=== PATIENT | female | born 1975 | race African-American/Black ===

== ENCOUNTER 2016-09-18 12:29 | Emergency (ER) | payer BC, OTHER ==
[~2016-09-18] VITALS: Ht 165.1 cm; Wt 73.0 kg
--- NOTE | ~2016-09-18 | EKG ---
[address] [address] ELECTROCARDIOGRAM REPORT Name: LISSETTERICHMOND D Room #: DEP [facility] Paula#: [id number] Admission: 09/18/16 Attend Phys: Discharge: 09/18/16 Date of : 75 Report #: [id number] THIS REPORT FOR: //name// [facility] ED Test Date: 2016-09-18 Test Time: 12:47:13 Pat Name: RICHMOND MCLAUGHLIN Department: Room: Gender: F Buggy Man: cecil : 1975 Requested By: Daily Rizzo Order Number: [id number] MD: Luis Alberto Menendez Measurements Intervals [place] Rate: 67 P: 49 IA: 148 QRS: -13 QRSD: 83 T: -8 QT: 399 QTc: 422 Interpretive Statements Sinus rhythm Borderline T abnormalities, inferior leads No previous ECG available for comparison Electronically Signed On 09-19-2016 8:23:24 [employer] by Luis Alberto Menendez [email or web address] <ELECTRONICALLY SIGNED> By: Luis Alberto Menendez MD 09/19/16 0823 1247 [id number] Luis Alberto Menendez MD /YESI
[~2016-09-18 12:29] MED LIST: ADVAIR 250-501 EACH IH; LORTABELXR PO; ONDANSETRON ODT4 MG PO; ZPAK PO; ZYRTEC10 M2 PO
[2016-09-18] MEDS ORDERED: CLARITIN10 MG PO (12:56)
[2016-09-18] MEDS ORDERED: DICLOFENAC SOD50 M1 PO (12:57)
[2016-09-18] MEDS ORDERED: QNASL8.7 GM NS (12:57)
[2016-09-18] MEDS ORDERED: OMEPRAZOLE40 MG PO (12:58)
[2016-09-18] MEDS ORDERED: SYMBICORT160 MCG/4. INH (12:58)
[2016-09-18 13:01] LABS: ABSOLUTE NEUTROPHILS 5.5 thou/uL (1.4-8.2); BASOPHILS 1.4 % (0.0-2.0); EOSINOPHILS 2.4 % (0.0-3.0); HEMATOCRIT 33.9 % (37.0-47.0); HEMOGLOBIN 11.4 gm/dL (12.0-15.0); LYMPHOCYTES 32.2 % (24.0-44.0); MCH 27.7 pg (26.0-34.0); MCHC 33.7 % (28.0-37.0); MCV 82.2 fL (80.0-100.0); MONOCYTES 8.2 % (1.0-8.0); PLATELET COUNT 300 thou/uL (150-400); POLYS 55.8 % (36.0-66.0); RBC 4.12 mil/uL (4.20-5.00); RDW 15.1 % (10.5-14.5); WBC 9.9 thou/uL (4.0-11.0)
[2016-09-18 13:02] LABS: MANUAL DIFF NO
[2016-09-18 13:12] LABS: CREATININE 0.9 mg/dL (0.6-1.3); POTASSIUM 4.2 mmol/L (3.5-5.1)
[2016-09-18] MEDS ORDERED: COMPAZINE5 M1 PO (15:05)
[2016-09-18 15:25] VITALS: BP 121/74
== END 2016-09-18 15:40 | disposition home or self-care (01) ==
LOC: ER 12:29
PROVIDERS: Emergency Medicine
DX: R51 Headache (principal); J45.909 Unspecified asthma, uncomplicated; K21.9 Gastro-esophageal reflux disease without esophagitis; Z88.0 Allergy status to penicillin